=== PATIENT | female | born 1970 | race Caucasian/White ===

== ENCOUNTER → 2023-12-09 14:02 | Outpatient (REF) | payer BC, SELFPAY | LOC: RAD 14:02 | PROVIDERS: ATTENDING PHYSICIAN Obstetrics & Gynecology; FAMILY PHYSICIAN Physician Assistant Medical | DX: N92.4 Excessive bleeding in the premenopausal period (principal) | CPT/HCPCS: 76830; 76856 ==

== ENCOUNTER 2023-12-30 06:26 | Day surgery (SDC) | payer BC, SELFPAY ==
[2023-12-26 13:45] VITALS: BMI 24.0
[2023-12-26 14:09] LABS: % Basophils 0.3 % (0-2); % Eosinophils 2.5 % (0-6); % Immature Granulocytes 0.3 % (0-0.5); % Lymphocytes 17.2 % (20.5-51.1); % Monocytes 8.9 % (1.7-9.3); % Neutrophils 70.8 % (42.2-75.2); Absolute Eosinophils 0.2 10^3/uL (0-0.7); Absolute Lymphocytes 1.1 10^3/uL (1.2-3.4); Absolute Monocytes 0.6 10^3/uL (0.1-0.6); Absolute Neutrophils 4.4 10^3/uL (1.4-6.5); Hematocrit 37.4 % (37.0-47.0); Hemoglobin 12.4 g/dL (12.0-16.0); Mean Corp Hgb Conc. 33.2 g/dL (33.0-37.0); Mean Corpuscular Hgb 29.9 pg (27.0-31.0); Mean Corpuscular Volume 90.1 fL (81.0-99.0); Nucleated Red Blood Cells % 0 %; Platelet Count 267 10^3/uL (130-400); Red Blood Cell Count 4.15 10^6/uL (4.20-5.40); Red Cell Dist. Width 13.4 % (11.5-14.5); White Blood Cell Count 6.3 10^3/uL (4.8-10.8)
[2023-12-30] VITALS (11 sets, daily range): BP systolic 110–135; BP diastolic 65–86; BMI 24.0
[2023-12-30] MEDS: NORMOSOL-R 1000 IV (10:30)
[2023-12-30 10:54] LABS: HCG, Urine Qualitative Screen Negative
[2023-12-30] MEDS: TORADOL 15 MG IV (13:39)
== END 2023-12-30 15:00 | disposition home or self-care (01) ==
LOC: SDS 06:26
PROVIDERS: ATTENDING PHYSICIAN Obstetrics & Gynecology; FAMILY PHYSICIAN Physician Assistant Medical; OTHER PHYSICIAN Internal Medicine Gastroenterology; OTHER PHYSICIAN Internal Medicine Rheumatology
DX: N85.9 Noninflammatory disorder of uterus, unspecified (principal); N93.9 Abnormal uterine and vaginal bleeding, unspecified
CPT/HCPCS: 58558; 88305; 36415; 81025; 85025

== ENCOUNTER → 2024-02-11 10:53 | Outpatient (REF) | payer BC, SELFPAY | LOC: WDC 10:53 | PROVIDERS: ATTENDING PHYSICIAN Obstetrics & Gynecology; FAMILY PHYSICIAN Physician Assistant Medical | DX: Z12.31 Encounter for screening mammogram for malignant neoplasm of breast (principal) | CPT/HCPCS: 77063; 77067 ==

== ENCOUNTER → 2024-04-05 10:50 | Outpatient (REF) | payer BC, SELFPAY | LOC: WDC 10:50 | PROVIDERS: ATTENDING PHYSICIAN Obstetrics & Gynecology; FAMILY PHYSICIAN Physician Assistant Medical | DX: R92.2 Inconclusive mammogram (principal) | CPT/HCPCS: 76641 ==

== ENCOUNTER → 2024-06-09 09:40 | Outpatient (REF) | payer BC, SELFPAY | LOC: RAD 09:40 | PROVIDERS: ATTENDING PHYSICIAN Internal Medicine Gastroenterology; FAMILY PHYSICIAN Physician Assistant Medical | DX: D18.03 Hemangioma of intra-abdominal structures (principal) | CPT/HCPCS: 76700 ==

== ENCOUNTER 2024-11-24 06:21 | Day surgery (SDC) | payer BC, SELFPAY | END 2024-11-24 11:35 | disposition home or self-care (01) | LOC: GI 06:21 | PROVIDERS: ATTENDING PHYSICIAN Internal Medicine Gastroenterology | DX: K64.8 Other hemorrhoids (principal); K51.911 Ulcerative colitis, unspecified with rectal bleeding; K64.4 Residual hemorrhoidal skin tags; K92.1 Melena; K52.9 Noninfective gastroenteritis and colitis, unspecified; K62.89 Other specified diseases of anus and rectum | CPT/HCPCS: 45331; 88305 ==